=== PATIENT | male | born 1950 | race Caucasian/White ===

== ENCOUNTER 2017-02-19 06:33 | Emergency (ER) | payer MEDICARE ==
[~2017-02-19] VITALS: Ht 182.9 cm; Wt 82.0 kg
[~2017-02-19 06:33] MED LIST: BAYER ASA325 MG OR; BENTYL20 MG OR; MEDROL4 M1 OR; MULT VITAMI1 OR
[2017-02-19] MEDS ORDERED: TRAMADOL HYDROC50 MG PO (07:44)
[2017-02-19] MEDS ORDERED: KEFLEX500 MG PO (07:44)
[2017-02-19 07:57] VITALS: BP 150/80
== END 2017-02-19 08:03 | disposition home or self-care (01) ==
LOC: ED 06:33
PROC: 0HQGXZZ Repair Left Hand Skin, External Approach (ICD-10-PCS; principal; 2017-02-19)
DX: S61.213A Laceration without foreign body of left middle finger without damage to nail, initial encounter (principal); W23.0XXA Caught, crushed, jammed, or pinched between moving objects, initial encounter; Y92.009 Unspecified place in unspecified non-institutional (private) residence as the place of occurrence of the external cause

== ENCOUNTER 2017-02-25 12:33 | Emergency (ER) | payer MEDICARE ==
[~2017-02-25] VITALS: Ht 182.9 cm; Wt 83.2 kg
[~2017-02-25 12:33] MED LIST changes: +KEFLEX500 MG PO; +TRAMADOL HYDROC50 MG PO
[2017-02-25 13:40] VITALS: BP 150/82
== END 2017-02-25 13:40 | disposition home or self-care (01) ==
LOC: ED 12:33
DX: S61.213D Laceration without foreign body of left middle finger without damage to nail, subsequent encounter (principal); Z48.01 Encounter for change or removal of surgical wound dressing

== ENCOUNTER 2017-02-28 09:10 | Emergency (ER) | payer MEDICARE ==
[~2017-02-28] VITALS: Ht 182.9 cm; Wt 85.0 kg
[2017-02-28 09:22] VITALS: BP 115/68
== END 2017-02-28 09:30 | disposition home or self-care (01) ==
LOC: ED 09:10
DX: S61.211D Laceration without foreign body of left index finger without damage to nail, subsequent encounter (principal); X58.XXXD Exposure to other specified factors, subsequent encounter